=== PATIENT | male | born 1950 | race Caucasian/White ===

== ENCOUNTER → 2017-06-07 | Day surgery (SDC) | payer MEDICARE ==
[2017-06-05 11:05] LABS: BASOPHILS # (AUTO) 0.1 (0.0-0.1); BASOPHILS % 0.7 % (0.0-1.0); EOSINOPHILS # (AUTO) 0.2 (0.0-0.4); EOSINOPHILS % 2.4 % (0.0-6.0); HEMATOCRIT 46.5 % (38.2-49.6); HEMOGLOBIN 15.5 g/dL (14.0-18.0); LYMPHOCYTES # (AUTO) 1.7 (1.0-3.2); LYMPHOCYTES % 24.5 % (18.0-39.1); MEAN CORPUSCULAR HEMOGLOBIN 28.1 pg (28-32); MEAN CORPUSCULAR HGB CONC 33.3 g/dL (31-35); MEAN CORPUSCULAR VOLUME 84.4 fL (81-99); MONOCYTES # (AUTO) 0.5 (0.2-0.8); MONOCYTES % 6.8 % (4.4-11.3); NEUTROPHILS # (AUTO) 4.5 (2.1-6.9); NEUTROPHILS % 65.3 % (38.7-80.0); PLATELET COUNT 147 x10e3/uL (140-360); RED BLOOD COUNT 5.51 x10e6/uL (4.3-5.7); RED CELL DISTRIBUTION WIDTH 14.7 % (11.7-14.4)
[~2017-06-07] MED LIST: ASA81 MG PO; ASPIR 8181 MG PO; CHONDROITIN SU PO; FENTANYL CITRATE/PF 100MCG/2 ML INJ ONE; FISH OIL 1,2001 EAC5 PO; FISH OIL 1,2001 EACH PO; GLIMEPIRIDE PO; GLUCOSA-CHOND-1 EACH PO; HUMALOG100 UNITS/ SQ; LANTUS 3ML100 UNITS/ SC; MIDAZOLAM HCL 2 MG/2 ML VIAL ONE; Multi Vitamin PO; NOVOLOG100 UNIT/4 SQ; PROPOFOL IV EMULSION 10 MG/ML 50 ML VIAL ONE; TESTOSTERONE INJ; TRIBENZOR 40-51 EACH PO; VIAGRA100 MG PO; VITAMIN D1000 UNI1 PO; Z.0.ACTIGALL300 MG PO; Z.0.ATENOLOL100 MG PO; Z.0.BENICAR20 MG PO; Z.0.GLUCOSAMINE1000 PO; Z.0.LANTUS 3ML100 UN SQ; Z.0.LISINOPRIL40 MG PO; Z.0.MULTIVITAMINS1 E PO; Z.0.NORVASC10 MG PO; Z.0.PREVACID30 MG PO; [UNRECOGNIZED DRUG - OTHER] PO; [UNRECOGNIZED DRUG - OTHER] PO; [UNRECOGNIZED DRUG - OTHER] PO
--- NOTE | 2017-06-07 11:19 | Operative Report ---
DATE OF PROCEDURE: June 07, 2017 REFERRING PHYSICIAN: Dr. Isaias Campa. PROCEDURE PERFORMED: EGD with biopsies and polypectomy. INDICATIONS FOR EGD: Patient with history of splenic vein thrombosis. EGD is being carried out to check for gastric varices. MEDICATION: Patient was done under MAC. Please see anesthesiologist's note. PROCEDURE: With the patient in left lateral decubitus position, flexible fiberoptic Olympus gastroscope was introduced into the esophagus under direct visualization without any difficulty. There was some patchy erythema noted in the distal esophagus. Minute tongues of velvety red mucosa were noted to extend proximally from the GE junction and biopsies were obtained to rule out Swenson's. The scope was then advanced with ease into the stomach. Mucosa overlying the antrum revealed some patchy intense erythema and low-grade to moderate edema, and biopsies were obtained and sent to stain for H. pylori. Some hyperplastic appearing polyps were also noted in the body of the stomach and some were partially excised with a cold biopsy forceps. The pylorus was of normal contour and shape. Was intubated with ease, and the scope was advanced all the way to the 2nd portion of the duodenum. The scope was then withdrawn slowly, and the mucosa overlying the proximal 2nd portion as well as the duodenal bulb appeared to be within normal limits. The scope was then withdrawn back into the stomach and retroflexed, and the mucosa overlying the fundus and the cardia appeared to be within normal limits. The scope was then straightened out. The stomach was decompressed. The scope was subsequently withdrawn. Patient tolerated the procedure well. IMPRESSION 1. Distal esophagitis, mild. 2. Rule out Swenson's esophagus. 3. Gastritis biopsied. Biopsy sent stain for Helicobacter pylori. 4. Gastric polyps. Some partially excised with a cold biopsy forceps. 5. No evidence of gastric varices. PLAN: Follow up histology. Continue Prevacid 30 mg 1 p.o. a.c. b.i.d. Job#: [id number] SLAUGHTER cc:ISAIAS CAMPA MD
== END | disposition home or self-care (01) ==
LOC: OR 08:04
PROVIDERS: ATTEND Internal Medicine Gastroenterology
DX: I82.890 Acute embolism and thrombosis of other specified veins (principal); K31.7 Polyp of stomach and duodenum; K29.70 Gastritis, unspecified, without bleeding; K20.9 Esophagitis, unspecified; K21.9 Gastro-esophageal reflux disease without esophagitis; E11.9 Type 2 diabetes mellitus without complications; I10 Essential (primary) hypertension; Z01.810 Encounter for preprocedural cardiovascular examination; Z01.812 Encounter for preprocedural laboratory examination; Z79.4 Long term (current) use of insulin
CPT/HCPCS: 36415; 43239; 85025; 93005; J2250

== ENCOUNTER → 2018-06-13 | Day surgery (SDC) | payer MEDICARE ==
[2018-06-08 12:34] LABS: BASOPHILS # (AUTO) 0.1 (0.0-0.1); BASOPHILS % 0.7 % (0.0-1.0); EOSINOPHILS # (AUTO) 0.2 (0.0-0.4); EOSINOPHILS % 2.4 % (0.0-6.0); HEMATOCRIT 47.6 % (38.2-49.6); HEMOGLOBIN 16.2 g/dL (14.0-18.0); LYMPHOCYTES # (AUTO) 2.4 (1.0-3.2); LYMPHOCYTES % 25.9 % (18.0-39.1); MEAN CORPUSCULAR HEMOGLOBIN 28.9 pg (28-32); MEAN CORPUSCULAR VOLUME 84.8 fL (81-99); MONOCYTES # (AUTO) 0.6 (0.2-0.8); MONOCYTES % 6.8 % (4.4-11.3); NEUTROPHILS # (AUTO) 5.8 (2.1-6.9); NEUTROPHILS % 63.9 % (38.7-80.0); PLATELET COUNT 179 x10e3/uL (140-360); RED BLOOD COUNT 5.61 x10e6/uL (4.3-5.7); RED CELL DISTRIBUTION WIDTH 14.3 % (11.7-14.4)
[~2018-06-13] MED LIST changes: +BENEFIBER1 EAC1 PO; +HYOSCYAMINE SULFATE 0.5 MG/ML INJ ONE; +NOVOLOG100 UNIT/1 INJ; +NUGENIX PO; +TRESIBA INJ
--- OUTSIDE RECORDS SUMMARY | 2018-06-13 05:55 | XMS REPORT | Clinical Summary ---
Author Author [facility] Organization [facility] Address Unknown Phone Unavailable Care Team Providers Care Tower Operator Name Role Phone Karlos Odell MD PCP Allergies No Known Allergies Medications End Date Status Medication Sig Dispensed Refills Start Date Active insulin GLARGINE (LANTUS Inject 20 0 SOLOSTAR) 100 unit/mL Units under injection (pen) the skin every morning. Active majdhdxugs-mivmkwihu-edhs Take 1 tablet 0 iazid (TRIBENZOR) by mouth 40-5-12.5 mg tablet every morning. Active lansoprazole (PREVACID) Take 30 mg by 0 30 MG capsule mouth 2 (two) times a day. Active pancrelipase, Take 24,000 0 nvlwyj-hvdyzsrr-iwlfygy, Units by (CREON) 24,000-76,000 mouth 3 -120,000 unit (three) times capsule,delayed a day with release(DR/EC) capsule meals. TAKES 3 TABLETS 3 TIMES A DAY WITH MEALS Active testosterone cypionate Inject 200 0 200 mg/mL kit mg/mL into the shoulder, thigh, or buttocks every 14 (fourteen) days. EVERY AND OF THE MONTH Active UNABLE TO FIND Take 3 0 tablets by mouth every morning. Nugenix Active BENEFIBER, GUAR GUM, ORAL Take 2 Doses 0 by mouth every morning. 2 TBSP Active MULTIVITAMIN ORAL Take 1 tablet 0 by mouth every morning. Active aspirin (ECOTRIN) 81 MG Take 81 mg by 0 enteric coated tablet mouth every morning. Active glucosamine-chondroitin Chew 2 0 750-600 mg tablets every tablet,chewable morning. Active omega-3 fatty acids-fish Take 2 0 oil (FISH OIL) 360-1,200 tablets by mg capsule mouth 2 (two) times a day. Active insulin GLARGINE (LANTUS Inject 60 0 SOLOSTAR) 100 unit/mL Units under injection (pen) the skin nightly. Active insulin lispro (HUMALOG) Inject 15 0 100 unit/mL injection pen Units under the skin daily before dinner. Active insulin lispro (HUMALOG) Inject 10 0 100 unit/mL injection pen Units under the skin daily before breakfast. Active ERGOCALCIFEROL, VITAMIN Take 1 tablet 0 D2, (VITAMIN D2 ORAL) by mouth every morning. 06/28/2017 Discontinued insulin lispro (HumaLOG) Inject 10 0 100 unit/mL injection Units under the skin every morning. 06/28/2017 Discontinued cyanocobalamin 1,000 Inject 1,000 0 mcg/mL injection mcg into the shoulder, thigh, or buttocks once. 08/02/2017 HYDROcodone-acetaminophen Take 1 tablet 31 tablet 0 (NORCO) 5-325 mg per by mouth 7 tablet every 6 (six) hours as needed for moderate pain for up to 21 days. Max Daily Amount: 4 tablets Active Problems Problem Noted Date Status post umbilical hernia repair, follow-up exam 07/20/2017 Last Assessment & Plan: The patient is doing well status post laparoscopic umbilical hernia repair with mesh. There is no longer any lifting restrictions. The patient will return to clinic as needed. 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 We will obtain the MRI disk at [facility] for this report and discuss these MRI finding with his System Support Technician, Dr. Otis [facility] [phone]. . Resolved Problems Problem Noted Date Resolved Date Umbilical hernia without obstruction and without gangrene 04/06/2017 08/26/2017 Last Assessment & Plan: Patient has a small, non-painful, reducible umbilical hernia. We discussed the risks, benefits and alternatives to laparoscopic surgical repair of this hernia and he wishes to proceed. Encounters Care Team Description Date Type Specialty Cuong Alexander MD Status post umbilical hernia repair, follow-up exam (Primary Dx) 08/24/2017 Office Visit General Surgery Cuong Alexander MD Status post umbilical hernia repair, follow-up exam (Primary Dx) 07/20/2017 Office Visit General Surgery Cuong Alexander MD REPAIR, HERNIA, UMBILICAL, LAPAROSCOPIC 07/12/2017 Surgery General Surgery Severiano Barahona Jr., MD 07/12/2017 Anesthesia General Surgery Event Cuong Alexander MD 07/12/2017 Hospital General Surgery Encounter Cuong Alexander MD Preop testing (Primary Dx); Umbilical hernia without obstruction or gangrene 06/28/2017 Pre-Admit Pre-Admission Testing Testing Appointment after 06/12/2017 Family History Medical History Relation Name Comments No Known Problems Brother No Known Problems Brother Diabetes Brother Kidney disease Daughter No Known Problems Daughter Brain cancer Father Lung cancer Father No Known Problems Maternal Grandfather No Known Problems Maternal Grandmother Blood Clots Mother No Known Problems Paternal Grandfather No Known Problems Paternal Grandmother Diabetes Sister Relation Name Status Comments Brother Alive Brother Alive Brother Alive Daughter Alive Daughter Alive Father Maternal Grandfather Maternal Grandmother Mother Paternal Grandfather Paternal Grandmother Sister Alive Social History Date Tobacco Use Types Packs/Day Years Used Quit: 1974 Former Smoker Cigarettes 1.5 8 Smokeless Tobacco: Never Used Alcohol Use Drinks/Week oz/Week Comments No QUIT 2011, - used to be heavy drinker. Sex Assigned at Date Recorded Not on file Industry Job Start Date Occupation Not on file Not on file Not on file Travel End Travel History Travel Start No recent travel history available. Last Filed Vital Signs Time Taken Vital Sign Reading 08/24/2017 10:37 AM TACK MAKER Blood Pressure 136/70 08/24/2017 10:37 AM TACK MAKER Pulse 85 08/24/2017 10:37 AM TACK MAKER Temperature 36.5 C (97.7 F) 08/24/2017 10:37 AM TACK MAKER Respiratory Rate 16 07/12/2017 12:04 PM TACK MAKER Oxygen Saturation 96% - Inhaled Oxygen - Concentration 08/24/2017 10:37 AM TACK MAKER Weight 115 kg (252 lb 8 oz) 08/24/2017 10:37 AM TACK MAKER Height 182.9 cm (6') 08/24/2017 10:37 AM TACK MAKER Body Mass Index 34.25 Plan of Treatment Health Maintenance Due Date Last Done Comments DIABETIC RETINAL EYE EXAM 1950 DIABETIC FOOT EXAM 1960 URINE MICROALBUMIN 1960 COLON CANCER SCREENING 2000 SHINGRIX VACCINE (1 of 2) 2000 ZOSTER VACCINE 2010 PNEUMOCOCCAL 11/11/2015 POLYSACCHARIDE VACCINE AGE 65 AND OVER PNEUMOCOCCAL-13 11/11/2015 INFLUENZA VACCINE 02/28/2018 05/24/2011, 04/28/2010, 08/31/2009, Additional history exists Implants Device Identifier Shelf Expiration Date Model / Serial / Lot Implanted Type Area Manufactur er 12/25/2017 [id number] / / [id number] System Fixation Laparo Absorb 30 Surgical N/A: N/A kajeet Fastnr Optifix - [id number] Implants; Implanted: 07/12/2017 (Quantity not Expanders; on file) Extenders; Surgical Wires 01/25/2019 [id number] / / [id number] Mesh Hrnia Rpr Ventralight St 4x6in Surgical N/A: N/A kajeet Elptcl Ppe Ventrl - [id number] Mesh or Implanted: 07/12/2017 (Quantity not Tissue on file) [employer] Procedures Comments Procedure Name Priority Date/Time Associated Diagnosis POC GLUCOSE Routine 07/12/2017 11:55 AM TACK MAKER POC GLUCOSE Routine 07/12/2017 10:58 AM TACK MAKER HI AN ELECTIVE Routine 07/12/2017 ENDOTRACHEAL AIRWAY 8:41 AM TACK MAKER Procedure Note - Severiano Barahona Jr., MD - 07/12/2017 8:40 AM TACK MAKER Airway Date/Time: 07/12/2017 8:19 AM Performed by: SEVERIANO BARAHONA JR Authorized by: SEVERIANO BARAHONA JR Location: OR Urgency: Elective Difficult Airway: No Anesthesio logist: SEVERIANO BARAHONA JR Performed by: anesthesio logist Preoxygena louie with 100% O2: Yes C-spine Precaution s Maintained Throughout : Yes Mask Ventilatio n: Easy mask Final Airway Type: Endotrache al airway Final Endotrache al Airway: ETT Cuffed: Yes Technique Used: Direct laryngosco py Devices/Me thods Used in Placement: Intubatin g stylet Insertion Site: Oral ETT Size (mm): 8.0 Cuff at minimum occlusion pressure: Yes Measured from: Teeth ETT to Teeth (cm): 23 Placement Verified by: CO2 detection and direct visualizat ion Laryngosco pic view: Grade I - full view of glottis Rapid Sequence Induction (RSI): No Modified RSI: No Number of Attempts at Approach: 1 REPAIR, HERNIA, 07/12/2017 Umbilical hernia without UMBILICAL, LAPAROSCOPIC 8:00 AM TACK MAKER obstruction and without gangrene POC GLUCOSE Routine 07/12/2017 7:30 AM TACK MAKER ECG PRE/POST OP Routine 06/28/2017 Preop testing 11:45 AM TACK MAKER CBC HEMOGRAM Routine 06/28/2017 Umbilical hernia without 10:50 AM TACK MAKER obstruction or gangrene HEMOGLOBIN A1C Routine 06/28/2017 Preop testing 10:31 AM TACK MAKER HEPATIC FUNCTION PANEL Routine 06/28/2017 Preop testing 10:31 AM TACK MAKER ZZESTIMATED GFR Routine 06/28/2017 10:29 AM TACK MAKER BASIC METABOLIC PANEL Routine 06/28/2017 Umbilical hernia without 10:29 AM TACK MAKER obstruction or gangrene after 06/12/2017 Results * POC glucose (07/12/2017 11:55 AM TACK MAKER) Only the most recent of 3 results within the time period is included. POC glucose (H) 65 - 99 mg/dL [facility] DEPARTMENT OF Comment: PATHOLOGY AND No Action Needed GENOMIC MEDICINE Meter ID: [id number] Director Sales And Marketing: Co My Dien T Performing Organization Address [facility] Phone Number [facility] DEPARTMENT OF [address] [place] [address] PATHOLOGY AND GENOMIC MEDICINE * ECG Pre/Post Op (06/28/2017 11:45 AM TACK MAKER) Ventricular rate [facility] MUSE Atrial rate [facility] MUSE HI interval [facility] MUSE QRSD interval [facility] MUSE QT interval [facility] MUSE QTC interval [facility] MUSE P axis 1 HM MUSE QRS axis 1 [facility] M[facility] T wave axis [facility] MUSE EKG impression [facility] MUSE Performing Organization Address [facility] Phone Number [facility] MUSE [address] [place] [address] * CBC hemogram (06/28/2017 10:50 AM TACK MAKER) WBC 4.50 - 11.00 k/uL [facility] DEPARTMENT OF PATHOLOGY AND GENOMIC MEDICINE RBC 4.40 - 6.00 m/uL [facility] DEPARTMENT OF PATHOLOGY AND GENOMIC MEDICINE HGB 14.0 - 18.0 g/dL [facility] DEPARTMENT OF PATHOLOGY AND GENOMIC MEDICINE HCT 41.0 - 51.0 % [facility] DEPARTMENT OF PATHOLOGY AND GENOMIC MEDICINE MCV 82.0 - 100.0 fL [facility] DEPARTMENT OF PATHOLOGY AND GENOMIC MEDICINE MCH 27.0 - 34.0 pg [facility] DEPARTMENT OF PATHOLOGY AND GENOMIC MEDICINE MCHC 31.0 - 37.0 g/dL [facility] DEPARTMENT OF PATHOLOGY AND GENOMIC MEDICINE RDW - SD 37.0 - 55.0 fL [facility] DEPARTMENT OF PATHOLOGY AND GENOMIC MEDICINE MPV 8.8 - 13.2 fL [facility] DEPARTMENT OF PATHOLOGY AND GENOMIC MEDICINE Platelet count 150 - 400 k/uL [facility] DEPARTMENT OF PATHOLOGY AND GENOMIC MEDICINE Nucleated RBC /100 WBC [facility] DEPARTMENT OF PATHOLOGY AND GENOMIC MEDICINE Specimen Blood Performing Organization Address City/State/[facility] [place] [place] [address] PATHOLOGY AND GENOMIC MEDICINE * Hemoglobin A1c (06/28/2017 10:31 AM TACK MAKER) Hemoglobin A1C (H) 4.0 - 5.6 % [facility] DEPARTMENT OF Comment: PATHOLOGY AND HbA1c cutoffs for diagnosing [facility] diabetes: 4.0% - 5.6%=normal 5.7% - 6.4%=increased risk for diabetes (prediabetes) >=6.5%=diabetes Goals for glycemic control (ADA 2016) < 7.0%Target for non adults with diabetes. More or less stringent targets may be appropriate for individual patients. <7.5% Target for Children and adolescents with type 1 diabetes. Specimen Blood Performing Organization Address City/State/[facility] [place] [address] PATHOLOGY AND GENOMIC MEDICINE * Hepatic function panel (06/28/2017 10:31 AM TACK MAKER) Albumin 3.5 - 5.0 g/dL [facility] DEPARTMENT OF PATHOLOGY AND GENOMIC MEDICINE Total bilirubin 0.0 - 1.2 mg/dL [facility] DEPARTMENT OF PATHOLOGY AND GENOMIC MEDICINE Bilirubin direct 0.0 - 0.3 mg/dL [facility] DEPARTMENT OF PATHOLOGY AND GENOMIC MEDICINE Alkaline phosphatase 40 - 129 U/L [facility] DEPARTMENT OF PATHOLOGY AND GENOMIC MEDICINE Protein Comment: 6.3 - 8.3 g/dL [facility] DEPARTMENT OF PATHOLOGY AND 4.6-7.0 g/dL GENOMIC MEDICINE 1 week 4.4-7.6 g/dL 7 months-1year 5.1-7.3 g/dL 1-2 years5.6-7 .5 g/dL >3 years6.0-8 .0 g/dL 18-150 6.3-8.3 g/dL ALT 5 - 50 U/L [facility] DEPARTMENT OF PATHOLOGY AND GENOMIC MEDICINE AST 10 - 50 U/L [facility] DEPARTMENT OF PATHOLOGY AND GENOMIC MEDICINE Specimen Plasma specimen Performing Organization Address City/[facility] [place] [address] PATHOLOGY AND [employer] MEDICINE * Estimated GFR (06/28/2017 10:29 AM TACK MAKER) GFR Non Af Amer mL/min/1.73 m2 [facility] DEPARTMENT OF PATHOLOGY AND GENOMIC MEDICINE GFR Af Amer Comment: mL/min/1.73 m2 [facility] DEPARTMENT OF Chronic kidney disease: <60 PATHOLOGY AND mL/min/1.73m2 [facility] Kidney failure: <15 mL/min/1.73m2 The estimated GFR is calculated from the IDMS-traceable Modification of Diet in Renal Disease Equation. The accuracy of the calculation is poor when the creatinine is normal. Calculated values >90 mL/min/1.73m2 are not reported. This equation has not been validated in children (<18 years), women, the elderly (>70 years), or ethnic groups other than Caucasians and Americans. Specimen Plasma specimen Performing Organization Address [facility] Phone Number [facility] [address] [place] [address] PATHOLOGY AND [employer] * Basic metabolic panel (06/28/2017 10:29 AM TACK MAKER) Sodium 135 - 148 mEq/L [facility] DEPARTMENT OF PATHOLOGY AND GENOMIC MEDICINE Potassium 3.5 - 5.0 mEq/L [facility] DEPARTMENT OF PATHOLOGY AND GENOMIC MEDICINE Chloride 98 - 112 mEq/L [facility] DEPARTMENT OF PATHOLOGY AND GENOMIC MEDICINE CO2 24 - 31 mEq/L [facility] DEPARTMENT OF PATHOLOGY AND GENOMIC MEDICINE Anion gap Comment: 7 - 15 mEq/L [facility] DEPARTMENT OF Starting from October PATHOLOGY AND , anion gap calculation [facility] no longer incorporates potassium. Please note the change. BUN 8 - 23 mg/dL [facility] DEPARTMENT OF PATHOLOGY AND GENOMIC MEDICINE Creatinine 0.7 - 1.2 mg/dL [facility] DEPARTMENT OF PATHOLOGY AND GENOMIC MEDICINE Glucose (H) 65 - 99 mg/dL [facility] DEPARTMENT OF PATHOLOGY AND GENOMIC MEDICINE Calcium 8.8 - 10.2 mg/dL [facility] DEPARTMENT OF PATHOLOGY AND GENOMIC MEDICINE Specimen Plasma specimen Performing Organization Address City/State/Zipcode Phone Number [facility] DEPARTMENT OF [address] [place] [address] PATHOLOGY AND GENOMIC MEDICINE after 06/12/2017 Insurance Payer Benefit Subscriber ID Type Phone Address Plan / Group HUMANA MEDICARE HUMANA xxxxxxxxx PPO MEDICARE PPO/PFFS/E [facility] Advance Directives Patient has advance care planning documents on file. For more information, carlos katz contact: Collins Monae [address] [place] [address]
[2018-06-13 09:15] VITALS: BP 94/57
--- NOTE | 2018-06-13 12:14 | Operative Report ---
DATE OF PROCEDURE: June 13, 2018 REFERRING PHYSICIAN: Dr. Shai Campa PROCEDURE PERFORMED: Colonoscopy and polypectomy. INDICATIONS FOR COLONOSCOPY: Surveillance colonoscopy, personal history of colon polyps. MEDICATION: Patient was done under MAC. Please see anesthesiologist's note. PROCEDURE: With the patient in the left lateral decubitus position, the flexible fiberoptic Olympus colonoscope was inserted into the rectum with ease and advanced all the way to the cecum. One polyp was snared from the cecum. Diverticular disease was noted throughout the colon. One polyp was hot biopsied from the ascending, and two polyps were hot biopsied from the transverse colon. Other than for diverticulosis, the descending and sigmoid appeared to be within normal limits. The scope was then retroflexed into the distal rectum, and moderate-size internal hemorrhoids were noted, none of which was actively bleeding. The scope was then straightened out. It was subsequently withdrawn. Patient tolerated the procedure well. IMPRESSION 1. Cecal polyp, snared. 2. Ascending colon polyp, hot biopsied. 3. Transverse colon polyps times 2, hot biopsied. 4. Pandiverticulosis. 5. Internal hemorrhoids, none actively bleeding. PLAN: Follow up histology. Initiate high-fiber, low-fat diet. Initiate high-fiber supplement. Patient will need a followup colonoscopy in 3 years. Job#: [id number] cc:ISAIAS CAMPA MD
== END | disposition home or self-care (01) ==
LOC: OR 05:53
PROVIDERS: ATTEND Internal Medicine Gastroenterology
DX: Z12.11 Encounter for screening for malignant neoplasm of colon (principal); D12.0 Benign neoplasm of cecum; K63.5 Polyp of colon; Z86.010 Personal history of colon polyps; K86.1 Other chronic pancreatitis; K29.70 Gastritis, unspecified, without bleeding; I10 Essential (primary) hypertension; K57.30 Diverticulosis of large intestine without perforation or abscess without bleeding; K64.8 Other hemorrhoids; Z01.810 Encounter for preprocedural cardiovascular examination; Z01.812 Encounter for preprocedural laboratory examination; K21.0 Gastro-esophageal reflux disease with esophagitis
CPT/HCPCS: 36415 ×2; 45384; 45385; 82948; 85025; 88305; 93005; J1980; J2250; 45378

== ENCOUNTER → 2018-06-26 | Outpatient (CLI) | payer MEDICARE ==
[~2018-06-26] MED LIST changes: -FENTANYL CITRATE/PF 100MCG/2 ML INJ ONE; +GADOBENATE DIMEGLUMINE 1 ML IV ONE; -HYOSCYAMINE SULFATE 0.5 MG/ML INJ ONE; -MIDAZOLAM HCL 2 MG/2 ML VIAL ONE; -PROPOFOL IV EMULSION 10 MG/ML 50 ML VIAL ONE
[2018-06-26 09:03] LABS: BLOOD UREA NITROGEN 17 mg/dL (7-26); BUN/CREATININE RATIO 20 (6-25); CREATININE, SERUM 0.85 mg/dL (0.72-1.25); EST GLOMERULAR FILTRATION RATE > 60 ML/MIN (60-)
--- NOTE | 2018-06-27 09:01 | Diagnostic Imaging Report ---
History: Chronic pancreatitis Comparison: MRI abdomen 02/09/2017. Technique: Multiplanar, multisequence images of the abdomen were obtained before and after the administration of 20 cc of gadolinium. 3D volume rendered reformation images of the biliary tree were performed. Findings: Biliary tree: The intrahepatic and intrahepatic bile ducts, cystic duct, and common bile duct are normal in morphology. Pancreas duct: Chronic dilatation of the main pancreas duct to 9 mm. Liver: Normal T2 signal. The right lobe measures 19 cm in length, stable. There is no evidence of mass. Gallbladder: Present. No evidence of gallstone or mural thickening. Spleen: Measures 18 cm in length. Normal signal. No mass. Pancreas: Diffusely atrophic. A nonenhancing lesion in the uncinate on previous exam is poorly visualized. There are no new pancreas lesions, enhancing or otherwise. Kidneys: No hydronephrosis. No enhancing renal lesions. Tiny nonenhancing cortical lesions are stable and are likely cysts. Adrenal glands: No mass Lymph nodes: No enlarged abdominal or retroperitoneal lymph nodes. Peritoneum/retroperitoneum: No free fluid or fluid collection. Vasculature: The main portal vein measures 19 mm in diameter without evidence of thrombus. Chronic splenic vein thrombus is redemonstrated with numerous collaterals. The IVC and hepatic veins are widely patent. The aorta is normal in diameter. Bowel: The stomach and visualized portions of the small bowel are unremarkable. Diffuse diverticulosis coli without associated inflammation. Lung bases: Unremarkable. Bones: Normal marrow signal. No focal osseous lesions. Soft tissues: Fat-containing of focal hernia is not visualized on this exam, possibly due to differences in slice selection. IMPRESSION: 1. Stable findings of chronic pancreatitis. No evidence of pancreas mass or acute pancreatitis. 2. 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 Stable splenomegaly. 3. Hepatomegaly and portal hypertension. No ascites. 4. No abnormalities of the biliary tree. 5. Diverticulosis coli. Thank you for your referral. Signed by: Dr. Tracie Hensley MD on 06/27/2018 8:58 AM
== END ==
LOC: MRI 07:56
PROVIDERS: ATTEND Internal Medicine Gastroenterology
DX: K86.1 Other chronic pancreatitis (principal)
CPT/HCPCS: 36415; 74183; 82565; 84520; A9577

== ENCOUNTER → 2020-09-11 | Outpatient (CLI) | payer MEDICARE ==
[~2020-09-11] MED LIST changes: +SODIUM CHLORIDE 0.9% 100 ML ONE
[2020-09-11 08:32] LABS: BLOOD UREA NITROGEN 18 mg/dL (7-26); BUN/CREATININE RATIO 19 (6-25); CREATININE, SERUM 0.97 mg/dL (0.72-1.25); EST GLOMERULAR FILTRATION RATE > 60 ML/MIN (60-)
== END ==
LOC: MRI 07:45
PROVIDERS: ATTEND Internal Medicine Gastroenterology
DX: K86.1 Other chronic pancreatitis (principal)
CPT/HCPCS: 36415; 74183; 82565; 84520; A9577; J7050

== ENCOUNTER → 2022-01-10 | Day surgery (SDC) | payer MEDICARE ==
[2022-01-06 11:05] LABS: BASOPHILS % 0.7 % (0.0-1.0); EOSINOPHILS # (AUTO) 0.1 (0.0-0.4); EOSINOPHILS % 1.8 % (0.0-6.0); HEMOGLOBIN 15.4 g/dL (14.0-18.0); LYMPHOCYTES # (AUTO) 1.7 (1.0-3.2); MEAN CORPUSCULAR HEMOGLOBIN 29.6 pg (28-32); MEAN CORPUSCULAR HGB CONC 32.8 g/dL (31-35); MEAN CORPUSCULAR VOLUME 90.2 fL (81-99); MONOCYTES # (AUTO) 0.4 (0.2-0.8); MONOCYTES % 7.3 % (4.4-11.3); NEUTROPHILS # (AUTO) 3.7 (2.1-6.9); NEUTROPHILS % 61.9 % (38.7-80.0); PLATELET COUNT 164 x10e3/uL (140-360); RED BLOOD COUNT 5.21 x10e6/uL (4.3-5.7)
[~2022-01-10] MED LIST changes: +CYMBALTA30 MG; +CYMBALTA30 MG PO; +FENTANYL CITRATE/PF 100MCG/2 ML INJ ONE; -GADOBENATE DIMEGLUMINE 1 ML IV ONE; +JANUMET 50-1,01 EACH PO; +LEVOTHYROXINE50 MCG PO; +LIDOCAINE HCL 2% LOCAL INJ 5 ML SDV VIAL INJ ONE; +MIDAZOLAM HCL 2 MG/2 ML VIAL ONE; +NOVOLOG100 UNIT/1 SC; +PROPOFOL IV EMULSION 10 MG/ML 20 ML VIAL ONE; -SODIUM CHLORIDE 0.9% 100 ML ONE
[2022-01-10 13:05] VITALS: BP 94/61
== END | disposition home or self-care (01) ==
LOC: OR 08:27
PROVIDERS: ATTEND Internal Medicine Gastroenterology
DX: Z09 Encounter for follow-up examination after completed treatment for conditions other than malignant neoplasm (principal); Z86.010 Personal history of colon polyps; K62.89 Other specified diseases of anus and rectum; K57.30 Diverticulosis of large intestine without perforation or abscess without bleeding; K64.8 Other hemorrhoids; K29.70 Gastritis, unspecified, without bleeding; K21.9 Gastro-esophageal reflux disease without esophagitis; I10 Essential (primary) hypertension; E11.9 Type 2 diabetes mellitus without complications; E03.9 Hypothyroidism, unspecified; K86.1 Other chronic pancreatitis; Z01.810 Encounter for preprocedural cardiovascular examination; Z01.812 Encounter for preprocedural laboratory examination; Z20.822 Contact with and (suspected) exposure to COVID-19; Z79.82 Long term (current) use of aspirin; Z79.4 Long term (current) use of insulin; Z79.899 Other long term (current) drug therapy; Z68.35 Body mass index [BMI] 35.0-35.9, adult; Z87.891 Personal history of nicotine dependence
CPT/HCPCS: 36415 ×2; 45378; 82948; 85025; 93005; J2001; J2250; J2704; J3010; U0002

== ENCOUNTER → 2022-01-25 | Outpatient (CLI) | payer MEDICARE ==
[~2022-01-25] MED LIST changes: -FENTANYL CITRATE/PF 100MCG/2 ML INJ ONE; +GADOBENATE DIMEGLUMINE 1 ML IV ONE; -LIDOCAINE HCL 2% LOCAL INJ 5 ML SDV VIAL INJ ONE; -MIDAZOLAM HCL 2 MG/2 ML VIAL ONE; -PROPOFOL IV EMULSION 10 MG/ML 20 ML VIAL ONE
== END ==
LOC: MRI 09:40
PROVIDERS: ATTEND Internal Medicine Gastroenterology
DX: K62.9 Disease of anus and rectum, unspecified (principal)
CPT/HCPCS: 36415; 72197; 82565; 84520; A9577